=== PATIENT | male | born 1965 | race Hispanic/Latino ===

== ENCOUNTER 2018-09-03 13:31 | Emergency (ER) | payer BC, OTHER ==
[2018-09-03] MEDS ORDERED: IBUPROFEN 400 MG TAB ONE (14:18)
[2018-09-03] MEDS ORDERED: HYDROCODONE/APAP 5/325 MG TAB ONE (14:18)
--- NOTE | 2018-09-03 14:56 | ER ---
Nurse's Notes [facility] Name: Xu Bain Age: 53 yrs Sex: Male : 1965 Arrival Date: 09/03/2018 Time: 13:32 Bed 18 Private MD: Diagnosis: Sprain of other part of left wrist and hand Presentation: 09/03 13:55 Presenting complaint: Patient states: I was using an electric drill and it twisted my la1 left hand/wrist. Transition of care: patient was not received from another setting of care. Onset of symptoms was September 03, 2018. Risk Assessment: Do you want to hurt yourself or someone else? Patient reports no desire to harm self or others. Initial Sepsis Screen: Does the patient meet any 2 criteria? No. Patient's initial sepsis screen is negative. Does the patient have a suspected source of infection? No. Patient's initial sepsis screen is negative. Care prior to arrival: None. 13:55 Method Of Arrival: Ambulatory la1 13:55 Acuity: JUNIE 4 la1 Triage Assessment: 14:40 General: Appears in no apparent distress. General: Behavior is calm, cooperative. Pain: iw Complains of pain in lateral aspect of left hand and left hand. Musculoskeletal: Range of motion: limited in MCP of left thumb. Injury Description:. Historical: - Allergies: 13:56 No Known Allergies; la1 - PMHx: 14:16 Hypertension; High Cholesterol; la1 - Immunization history:: Adult Immunizations up to date. - Social history:: Smoking status: Patient/guardian denies using tobacco. - Ebola Screening: : No symptoms or risks identified at this time. Screenin:05 Abuse screen: Denies threats or abuse. Nutritional screening: No deficits noted. em Tuberculosis screening: No symptoms or risk factors identified. Fall Risk None identified. Assessment: 15:20 Reassessment: Patient is alert, oriented x 3, equal unlabored respirations, skin iw warm/dry/pink. Pre-formed thumb splint applied to left thumb. . Vital Signs: 13:56 BP 140 / 90; Pulse 98; Resp 18; Temp 97.5; Pulse Ox 98% on R/A; Weight 81.65 kg; Height la1 5 ft. 9 in. (175.26 cm); Pain 8/10; 15:19 BP 136 / 89; Pulse 76; Resp 16 S; Pulse Ox 98% on R/A; Pain 5/10; iw 13:56 Body Mass Index 26.58 (81.65 kg, 175.26 cm) la1 ED Course: 13:32 Patient arrived in ED. as 13:56 Triage completed. la1 13:57 [facility] snw 13:57 Dustin Mujica MD is Attending Physician. snw 13:57 Arm band placed on left wrist. la1 14:05 Patient has correct armband on for positive identification. Bed in low position. Call em light in reach. Adult w/ patient. 14:06 Kelton Villarreal LVN is Primary Nurse. em 14:38 X-ray completed. Portable x-ray completed in exam room. Patient tolerated procedure sg4 well. 14:39 Hand Left 3 View XRAY In Process Unspecified. EDMS 15:10 No provider procedures requiring assistance completed. Patient did not have IV access iw during this emergency room visit. Administered Medications: 14:08 Drug: [place] 5 mg-325 mg 1 tabs Route: PO; em 15:20 Follow up: Response: No adverse reaction; Pain is decreased iw 14:08 Drug: Motrin 400 mg Route: PO; em 15:20 Follow up: Response: No adverse reaction; Pain is decreased iw Outcome: 14:56 Discharge ordered by . snw 15:20 Discharged to home ambulatory, with significant other. iw 15:20 Condition: stable 15:20 Discharge instructions given to patient, significant other, Instructed on discharge instructions, follow up and referral plans. medication usage, Demonstrated understanding of instructions, follow-up care, medications, Prescriptions given X 2. 15:21 Patient left the ED. iw Signatures: Dispatcher [employer] EDMS Cindy Jones FNP-C WEIGHER BULKER-Csnw Kelton Villarreal LVN LVN em Angela Ball Irene, RN RN iw Lazaro Banks RN RN Oneyda Nj sg4 Corrections: (The following items were deleted from the chart) 14:16 13:56 PMHx: None; la1 la1
--- NOTE | 2018-09-03 14:56 | EDPHYS ---
Physician Documentation [facility] Name: Xu Bain Age: 53 yrs Sex: Male : 1965 Arrival Date: 09/03/2018 Time: 13:32 Bed 18 Private MD: ED Physician Dustin Mujica HPI: 09/03 14:05 This 53 yrs old Male presents to ER via Ambulatory with complaints of Hand snw Injury. 14:05 The patient or guardian reports a contusion, decreased range of motion, injury, pain. snw The complaints affect the MCP of left thumb. Context: The problem was sustained at home, resulted from using electric drill and it went sideways. Onset: The symptoms/episode began/occurred suddenly, today. Associated signs and symptoms: The patient has no apparent associated signs or symptoms. Severity of symptoms: At their worst the symptoms were moderate. The patient has not experienced similar symptoms in the past. It is unknown whether or not the patient has recently seen a physician. Historical: - Allergies: 13:56 No Known Allergies; la1 - PMHx: 14:16 Hypertension; High Cholesterol; la1 - Immunization history:: Adult Immunizations up to date. - Social history:: Smoking status: Patient/guardian denies using tobacco. - Ebola Screening: : No symptoms or risks identified at this time. ROS: 14:04 Constitutional: Negative for fever, chills, and weight loss, Eyes: Negative for injury, snw pain, redness, and discharge, ENT: Negative for injury, pain, and discharge, Neck: Negative for injury, pain, and swelling, Cardiovascular: Negative for chest pain, palpitations, and edema, Respiratory: Negative for shortness of breath, cough, wheezing, and pleuritic chest pain, Abdomen/GI: Negative for abdominal pain, nausea, vomiting, diarrhea, and constipation, Back: Negative for injury and pain, : Negative for injury, bleeding, discharge, and swelling, Skin: Negative for injury, rash, and discoloration, Neuro: Negative for headache, weakness, numbness, tingling, and seizure. 14:04 MS/extremity: Positive for injury or acute deformity, contusion, decreased range of motion, pain, of the lateral aspect of left hand. Exam: 14:04 Constitutional: This is a well developed, well nourished patient who is awake, alert, snw and in no acute distress. Head/Face: Normocephalic, atraumatic. Eyes: Pupils equal round and reactive to light, extra-ocular motions intact. Lids and lashes normal. Conjunctiva and sclera are non-icteric and not injected. Cornea within normal limits. Periorbital areas with no swelling, redness, or edema. ENT: Nares patent. No nasal discharge, no septal abnormalities noted. Tympanic membranes are normal and external auditory canals are clear. Oropharynx with no redness, swelling, or masses, exudates, or evidence of obstruction, uvula midline. Mucous membranes moist. Neck: Trachea midline, no thyromegaly or masses palpated, and no cervical lymphadenopathy. Supple, full range of motion without nuchal rigidity, or vertebral point tenderness. No Meningismus. Chest/axilla: Normal chest wall appearance and motion. Nontender with no deformity. No lesions are appreciated. Cardiovascular: Regular rate and rhythm with a normal S1 and S2. No gallops, murmurs, or rubs. Normal PMI, no JVD. No pulse deficits. Respiratory: Lungs have equal breath sounds bilaterally, clear to auscultation and percussion. No rales, rhonchi or wheezes noted. No increased work of breathing, no retractions or nasal flaring. Abdomen/GI: Soft, non-tender, with normal bowel sounds. No distension or tympany. No guarding or rebound. No evidence of tenderness throughout. Back: No spinal tenderness. No costovertebral tenderness. Full range of motion. Skin: Warm, dry with normal turgor. Normal color with no rashes, no lesions, and no evidence of cellulitis. Neuro: Awake and alert, GCS 15, oriented to person, place, time, and situation. Cranial nerves II-XII grossly intact. Motor strength 5/5 in all extremities. Sensory grossly intact. Cerebellar exam normal. Normal gait. Psych: Awake, alert, with orientation to person, place and time. Behavior, mood, and affect are within normal limits. 14:04 Musculoskeletal/extremity: Extremities: grossly normal except: noted in the left hand: contusion, decreased ROM, swelling, tenderness. Vital Signs: 13:56 BP 140 / 90; Pulse 98; Resp 18; Temp 97.5; Pulse Ox 98% on R/A; Weight 81.65 kg; Height la1 5 ft. 9 in. (175.26 cm); Pain 8/10; 15:19 BP 136 / 89; Pulse 76; Resp 16 S; Pulse Ox 98% on R/A; Pain 5/10; iw 13:56 Body Mass Index 26.58 (81.65 kg, 175.26 cm) la1 MDM: 13:58 Patient medically screened. snw 15:23 Data reviewed: vital signs, nurses notes. Data interpreted: Pulse oximetry: on room air snw is 98 %. Interpretation: normal. Counseling: I had a detailed discussion with the patient and/or guardian regarding: the historical points, exam findings, and any diagnostic results supporting the discharge/admit diagnosis, the presence of at least one elevated blood pressure reading (>120/80) during this emergency department visit. 09/03 14:04 Order name: Hand Left 3 View XRAY; Complete Time: 15:29 snw 09/03 14:55 Order name: Thumb Spica Splint: velcro; Complete Time: 15:19 snw Administered Medications: 14:08 Drug: [place] 5 mg-325 mg 1 tabs Route: PO; em 15:20 Follow up: Response: No adverse reaction; Pain is decreased iw 14:08 Drug: Motrin 400 mg Route: PO; em 15:20 Follow up: Response: No adverse reaction; Pain is decreased iw Disposition: 16:48 Co-signature as Attending Physician, Dustin Mujica MD. gs Disposition: 09/03/18 14:56 Discharged to Home. Impression: Sprain of other part of left wrist and hand. - Condition is Stable. - Discharge Instructions: Cast or Splint Care, Adult, Hypertension, RICE for Routine Care of Injuries, Thumb Sprain. - Prescriptions for Diclofenac Sodium 75 mg Oral Tablet Sustained Release - take 1 tablet by ORAL route 2 times per day; 30 tablet. orphenadrine citrate 100 mg Oral Tablet Sustained Release - take 1 tablet by ORAL route 2 times per day As needed; 20 tablet. - Medication Reconciliation Form, Thank You Letter, Antibiotic Education, Prescription Opioid Use form. - Follow up: Private Physician; When: 2 - 3 days; Reason: Recheck today's complaints, Continuance of care, Re-evaluation by your physician. Follow up: Emergency Department; When: As needed; Reason: Worsening of condition. Signatures: Dispatcher [employer] EDCindy Aguilar, FOREST FIRE PREVENTION MANAGER-C FOREST FIRE PREVENTION MANAGER-Csnw Kelton Villarreal, LYE BATH OPERATOR LYE BATH OPERATOR em Marina Ellis RN RN iw Lazaro Banks RN RN comfort1 Dustin Mujica MD MD gs Corrections: (The following items were deleted from the chart) 14:16 13:56 PMHx: None; la1 la1 15:20 14:55 Ice pack ordered. snw iw 15:21 14:56 09/03/2018 14:56 Discharged to Home. Impression: Sprain of other part of left iw wrist and hand. Condition is Stable. Forms are Medication Reconciliation Form, Thank You Letter, Antibiotic Education, Prescription Opioid Use. Follow up: Private Physician; When: 2 - 3 days; Reason: Recheck today's complaints, Continuance of care, Re-evaluation by your physician. Follow up: Emergency Department; When: As needed; Reason: Worsening of condition. snw
--- NOTE | 2018-09-03 15:17 | RAD REPORT ---
EXAM DESCRIPTION: RAD - Hand Left 3 View - 09/03/2018 2:39 pm CLINICAL HISTORY: Trauma, hand pain COMPARISON: None. FINDINGS: No fracture, dislocation or periosteal reaction noted. No foreign body or other soft tissu e abnormality. Old ulna styloid fracture is evident. IMPRESSION: Negative left hand examination.
== END 2018-09-03 15:21 | disposition home or self-care (01) ==
LOC: ER 13:31
DX: S63.8X2A Sprain of other part of left wrist and hand, initial encounter (principal); X58.XXXA Exposure to other specified factors, initial encounter; Y93.89 Activity, other specified; Y92.009 Unspecified place in unspecified non-institutional (private) residence as the place of occurrence of the external cause; I10 Essential (primary) hypertension
CPT/HCPCS: 99283

== ENCOUNTER 2020-07-13 12:00 | Emergency (ER) | payer BC, OTHER ==
[2020-07-13] MEDS ORDERED: ONDANSETRON 4 MG/2 ML VIAL ONE (12:38)
[2020-07-13] MEDS ORDERED: NA CHLORIDE 0.9% 500 ML ONE (12:38)
[2020-07-13] MEDS ORDERED: METHYLPREDNISOLONE 125 MG INJ ONE (12:38)
[2020-07-13 12:43] LABS: Absolute Lymphocytes (CBC) 0.9 K/uL (0.7-4.9); Basophils % 0.4 % (0-1.3); Hematocrit 41.8 % (39.6-49.0); Lymphocytes % 22.3 % (15.3-44.8); RBC Red Blood Cell Count 4.69 M/uL (4.33-5.43)
--- NOTE | 2020-07-13 12:55 | RAD REPORT ---
EXAM DESCRIPTION: RAD - Chest Single View - 07/13/2020 12:50 pm CLINICAL HISTORY: COUGH Chest pain. COMPARISON: No comparisons FINDINGS: Portable technique limits examination quality. The lungs are grossly clear. The heart is upper limit of normal in size. No displaced fractures. IMPRESSION: No acute intrathoracic process suspected.
[2020-07-13 13:04] LABS: BUN Blood Urea Nitrogen 12 mg/dL (7-18); Bicarbonate 27 mmol/L (21-32); Ferritin 246.4 ng/mL (26-388); Glucose Level 117 mg/dL (74-106); Potassium 4.6 mmol/L (3.5-5.1); Sodium Level 137 mmol/L (136-145); Troponin (Emerg Dept Use Only) < 0.02 ng/mL (0.0-0.045)
[2020-07-13 13:06] LABS: C-Reactive Protein < 2.90 mg/L (<3.00)
[2020-07-13 13:40] LABS: SARS-COV-2 RT PCR POSITIVE (NEGATIVE)
--- NOTE | 2020-07-13 14:04 | EDPHYS ---
Physician Documentation [facility] Name: Xu Bain Age: 54 yrs Sex: Male : 1965 Arrival Date: 07/13/2020 Time: 12:03 Bed 25 Private MD: ED Physician Chino Parikh HPI: 07/13 12:39 This 54 yrs old Male presents to ER via Ambulatory with complaints of Cough, rn Headache. 12:39 The patient or guardian reports cough, flu symptoms, low-grade fever, myalgias, no rn appetite. Onset: The symptoms/episode began/occurred 5 day(s) ago. Severity of symptoms: At their worst the symptoms were mild, in the emergency department the symptoms are unchanged. Modifying factors: The symptoms are alleviated by nothing, the symptoms are aggravated by nothing. Associated signs and symptoms: Pertinent positives: fever, nausea, Pertinent negatives: chest pain, diarrhea, vomiting. The patient has not experienced similar symptoms in the past. Reports 5 days of cough, malaise, fatigue, headache, nausea. Seen at pcp office, given zithromax, no tests. Denies sob. No hemoptysis. Reports left sided headache without neck pain or stiffness. Now since yesterday decreased appetite. No loss of taste or smell. . Historical: - Allergies: 12:19 No Known Allergies; aa5 - Home Meds: 12:19 pravastatin 20 mg oral tab 1 tab once daily [Active]; carvedilol 3.125 mg oral tab aa5 daily [Active]; lisinopril 20 mg Oral tab 1 tab once daily [Active]; amlodipine 5 mg tab 1 tab once daily [Active]; 12:19 aspirin 81 mg Oral chew 1 tab once daily [Active]; aa5 - PMHx: 12:19 High Cholesterol; Hypertension; aa5 - Immunization history:: Adult Immunizations unknown. - Social history:: Smoking status: Patient denies any tobacco usage or history of. - Family history:: not pertinent. - Hospitalizations: : No recent hospitalization is reported. ROS: 12:39 Constitutional: + low grade fever Eyes: Negative for injury, pain, redness, and reduction furnace operator, ENT: Negative for injury, pain, and discharge, Neck: Negative for injury, pain, and swelling, Cardiovascular: Negative for chest pain, palpitations, and edema, Respiratory: + cough, negative for sob Abdomen/GI: Negative for vomiting, diarrhea, and constipation, Back: Negative for injury and pain, MS/Extremity: Negative for injury and deformity, Skin: Negative for injury, rash, and discoloration, Neuro: Negative for numbness, tingling, and seizure. Exam: 12:39 ECG was reviewed by the Attending Physician. rn 12:39 Constitutional: This is a well developed, well nourished patient who is awake, alert, rn and in no acute distress. Ambulatory to room without difficulty or assistance. Head/Face: Normocephalic, atraumatic. ENT: dry MM, no stridor Neck: Trachea midline, no masses palpated, and no cervical lymphadenopathy. Supple, full range of motion without nuchal rigidity, or vertebral point tenderness. No Meningismus. Cardiovascular: Regular rate and rhythm. No pulse deficits. Respiratory: Speaking full sentences. No increased work of breathing, no retractions or nasal flaring. Abdomen/GI: soft, non-tender Skin: Warm, dry MS/ Extremity: Pulses equal, no cyanosis. Neurovascular intact. Full, normal range of motion. Equal circumference. Neuro: Awake and alert, GCS 15, oriented to person, place, time, and situation. Normal gait. Vital Signs: 12:05 BP 151 / 92; Pulse 72; Resp 16 S; Temp 99.0(O); Pulse Ox 100% on R/A; aa5 13:15 BP 106 / 75; Pulse 65; Resp 16; Pulse Ox 100% on R/A; zb MDM: 12:04 Patient medically screened. rn 13:52 Differential Diagnosis: Bronchitis Influenza Upper Respiratory Infection Viral Syndrome rn Pneumonia Other dehydration. Data reviewed: vital signs, nurses notes, lab test result(s), radiologic studies, plain films, and as a result, I will discharge patient. Counseling: I had a detailed discussion with the patient and/or guardian regarding: the historical points, exam findings, and any diagnostic results supporting the discharge/admit diagnosis, lab results, radiology results, the need for outpatient follow up, to return to the emergency department if symptoms worsen or persist or if there are any questions or concerns that arise at home. Response to treatment: the patient's symptoms have mildly improved after treatment, and as a result, I will discharge patient. Special discussion: I discussed with the patient/guardian in detail that at this point there is no indication for admission to the hospital. It is understood, however, that if the symptoms persist or worsen the patient needs to return immediately for re-evaluation. ED course: + COVID, neg cxr, no oxygen requirement, will dc home with steroids. . 07/13 12:16 Order name: Blood Culture Adult (2) rn 07/13 12:16 Order name: BMP; Complete Time: 13:17 rn 07/13 12:16 Order name: C-Reactive Protein; Complete Time: 13:17 rn 07/13 12:16 Order name: CBC with Diff; Complete Time: 13:00 rn 07/13 12:16 Order name: D-Dimer; Complete Time: 13:00 rn 07/13 12:16 Order name: Ferritin; Complete Time: 13: rn 07/13 12:16 Order name: Procalcitonin rn 07/13 12:16 Order name: Strep; Complete Time: 13:00 rn 07/13 12:16 Order name: Troponin (emerg Dept Use Only); Complete Time: 13: rn 07/13 12:16 Order name: CXR XRAY; Complete Time: 13:00 rn 07/13 12:57 Order name: Throat Culture EDWA 07/13 13:41 Order name: COVID-19/FLU A+B; Complete Time: 13:41 EDWA 07/13 12:16 Order name: EKG; Complete Time: 12:17 rn 07/13 12:16 Order name: Cardiac monitoring; Complete Time: 12:40 rn 07/13 12:16 Order name: Droplet/Contact Precautions; Complete Time: 12:20 rn 07/13 12:16 Order name: EKG - Nurse/Tech; Complete Time: 12:40 rn 07/13 12:16 Order name: IV Start; Complete Time: 12:40 rn 07/13 12:16 Order name: Labs collected and sent; Complete Time: 12:40 rn 07/13 12:16 Order name: O2 Per Protocol; Complete Time: 12:40 rn 07/13 12:16 Order name: O2 Sat Monitoring; Complete Time: 12:40 rn EC:39 Rate is 73 beats/min. Rhythm is regular. QRS [place] is Normal. [place] interval is normal. QRS rn interval is normal. QT interval is normal. No Q waves. T waves are Normal. No ST changes noted. Clinical impression: Normal ECG. Interpreted by me. Reviewed by me. Administered Medications: 12:39 Drug: Zofran (Ondansetron) 4 mg Route: IVP; Site: left antecubital; zb 13:44 Follow up: Response: No adverse reaction; Nausea unchanged zb 12:40 Drug: NS 0.9% 500 ml Route: IV; Rate: bolus; Site: left antecubital; zb 13:00 Follow up: Response: No adverse reaction; IV Status: Completed infusion; IV Intake: zb 500ml 12:40 Drug: SOLU-Medrol 125 mg Route: IVP; Site: left antecubital; zb 13:45 Follow up: Response: No adverse reaction zb Disposition: 07/13/20 14:03 Discharged to Home. Impression: Coronavirus infection, unspecified, Dehydration. - Condition is Stable. - Discharge Instructions: Dehydration, Adult, COVID-19. - Prescriptions for Prednisone 20 mg Oral Tablet - take 1 tablet by ORAL route as directed for 14 days Take 1 tablet by mouth twice daily for 7 days, followed by 1 tablet by mouth once daily for 7 days.; 21 tablet. - Medication Reconciliation Form, Thank You Letter, Antibiotic Education, Prescription Opioid Use form. - Follow up: Rafael Leal MD; When: As needed; Reason: Recheck today's complaints, Re-evaluation by your physician. - Problem is new. - Symptoms have improved. Signatures: Dispatcher [employer] EDMS Chino Parikh MD MD rn Calderon, Audri RN RN aa5 Mere Marlow RN RN zb Corrections: (The following items were deleted from the chart) 12:41 12:17 CORONAVIRUS+MR.LAB.BRZ ordered. EDWA EDMS 12:41 12:17 Influenza Screen (A \T\ B)+BA.LAB.BRZ ordered. EDWA EDMS 14:16 14:03 07/13/2020 14:03 Discharged to Home. Impression: Coronavirus infection, aa5 unspecified; Dehydration. Condition is Stable. Forms are Medication Reconciliation Form, Thank You Letter, Antibiotic Education, Prescription Opioid Use. Follow up: Rafael Leal; When: As needed; Reason: Recheck today's complaints, Re-evaluation by your physician. Problem is new. Symptoms have improved. rn
--- NOTE | 2020-07-13 14:04 | ER ---
Nurse's Notes [facility] Name: Xu Bain Age: 54 yrs Sex: Male : 1965 Arrival Date: 07/13/2020 Time: 12:03 Bed 25 Private MD: Diagnosis: Coronavirus infection, unspecified;Dehydration Presentation: 07/13 12:04 Chief complaint: Patient states: slight cough, headache to left side of head, aa5 generalized weakness that began approximately 4 days ago and has gotten worse. Pt reports nausea and abdominal discomfort since yesterday. Denies vomiting/diarrhea, denies SOB. Pt also reports last dose of Azithromycin is today and reports also taking Mucinex DM. 12:04 Coronavirus screen: fatigue, headache, nausea, Client presents with at least one sign aa5 or symptom that may indicate coronavirus-19. Standard/surgical mask placed on the client. Provider contacted for isolation considerations. Ebola Screen: Patient negative for fever greater than or equal to 101.5 degrees Fahrenheit, and additional compatible Ebola Virus Disease symptoms. Initial Sepsis Screen: Does the patient meet any 2 criteria? No. Patient's initial sepsis screen is negative. Does the patient have a suspected source of infection? No. Patient's initial sepsis screen is negative. Risk Assessment: Do you want to hurt yourself or someone else? Patient reports no desire to harm self or others. Onset of symptoms was July 13, 2020. 12:04 Acuity: JUNIE 3 aa5 12:04 Method Of Arrival: Ambulatory aa5 Historical: - Allergies: 12:19 No Known Allergies; aa5 - Home Meds: 12:19 pravastatin 20 mg oral tab 1 tab once daily [Active]; carvedilol 3.125 mg oral tab aa5 daily [Active]; lisinopril 20 mg Oral tab 1 tab once daily [Active]; amlodipine 5 mg tab 1 tab once daily [Active]; 12:19 aspirin 81 mg Oral chew 1 tab once daily [Active]; aa5 - PMHx: 12:19 High Cholesterol; Hypertension; aa5 - Immunization history:: Adult Immunizations unknown. - Social history:: Smoking status: Patient denies any tobacco usage or history of. - Family history:: not pertinent. - Hospitalizations: : No recent hospitalization is reported. Screenin:44 Abuse screen: Denies threats or abuse. Denies injuries from another. Nutritional zb screening: No deficits noted. Tuberculosis screening: No symptoms or risk factors identified. Fall Risk None identified. Assessment: 12:40 General: Appears in no apparent distress. comfortable, Behavior is calm, cooperative, zb appropriate for age, Reports fever for feeling ill for fatigue for reports weakness . Pain: Complains of pain in left anabaptism Pain does not radiate. Pain currently is 6 out of 10 on a pain scale. Quality of pain is described as aching. Neuro: Level of Consciousness is awake, alert, obeys commands, Oriented to person, place, time, situation. Cardiovascular: Capillary refill < 3 seconds in bilateral fingers Patient's skin is warm and dry. Cardiovascular: Heart tones S1 S2 present Rhythm is regular. Respiratory: Airway is patent Respiratory effort is even, unlabored, Respiratory pattern is regular, symmetrical, Breath sounds are clear bilaterally. Respiratory: Reports cough that is. GI: Abdomen is flat, non-distended. GI: Patient currently denies diarrhea. GI: Reports nausea. :. EENT: No signs and/or symptoms were reported regarding the EENT system. Derm: Skin is intact, is healthy with good turgor, Skin is dry, Skin is normal, Skin temperature is warm. Musculoskeletal: No signs and/or symptoms reported regarding the musculoskeletal system. 13:17 Reassessment: Patient appears in no apparent distress at this time. Patient and/or zb family updated on plan of care and expected duration. Pain level reassessed. Patient is alert, oriented x 3, equal unlabored respirations, skin warm/dry/pink. pt states his headache is about 5/10. still has some nausea. but patient is resting quietly. Vital Signs: 12:05 BP 151 / 92; Pulse 72; Resp 16 S; Temp 99.0(O); Pulse Ox 100% on R/A; aa5 13:15 BP 106 / 75; Pulse 65; Resp 16; Pulse Ox 100% on R/A; zb ED Course: 12:03 Patient arrived in ED. rn 12:03 Chino Parikh MD is Attending Physician. rn 12:04 Arm band placed on Patient placed in an exam room, on a stretcher. aa5 12:16 Mere Marlow RN is Primary Nurse. zb 12:17 Triage completed. aa5 12:30 Inserted saline lock: 20 gauge in left antecubital area, using aseptic technique. Blood aa5 collected. 12:30 Initial lab(s) drawn, by me, sent to lab. First set of blood cultures drawn by me. aa5 12:40 Second set of blood cultures drawn by me. aa5 12:50 CXR XRAY In Process Unspecified. EDMS 14:01 Rafael Leal MD is Referral Physician. rn 14:15 No provider procedures requiring assistance completed. IV discontinued, intact, aa5 bleeding controlled, No redness/swelling at site. Pressure dressing applied. Administered Medications: 12:39 Drug: Zofran (Ondansetron) 4 mg Route: IVP; Site: left antecubital; zb 13:44 Follow up: Response: No adverse reaction; Nausea unchanged zb 12:40 Drug: NS 0.9% 500 ml Route: IV; Rate: bolus; Site: left antecubital; zb 13:00 Follow up: Response: No adverse reaction; IV Status: Completed infusion; IV Intake: zb 500ml 12:40 Drug: SOLU-Medrol 125 mg Route: IVP; Site: left antecubital; zb 13:45 Follow up: Response: No adverse reaction zb Intake: 13:00 IV: 500ml; Total: 500ml. zb Outcome: 14:03 Discharge ordered by . rn 14:15 Discharged to home ambulatory. aa5 14:15 Condition: stable 14:15 Discharge instructions given to patient, Instructed on discharge instructions, follow up and referral plans. medication usage, Demonstrated understanding of instructions, follow-up care, medications, Prescriptions given X 1. 14:16 Patient left the ED. aa5 Signatures: Dispatcher [employer] EDAR Chino Parihk MD MD rn Calderon, Audri, RN RN aa5 Brown, Zipporah, RN RN zb Corrections: (The following items were deleted from the chart) 12:43 12:04 Chief complaint: Patient states: slight cough, headache to left side of head, aa5 generalized weakness that began approximately 4 days ago and has gotten worse. Pt reports nausea and abdominal discomfort since yesterday. Denies vomiting/diarrhea, denies SOB. aa5 12:43 12:04 Coronavirus screen: fatigue, headache, nausea, aa5 aa5
[2020-07-13 14:25] VITALS: BP 106/75; O2SAT 100
[2020-07-13 14:27] VITALS: TEMP 99
--- NOTE | 2020-07-14 07:22 | EKG ---
Test Date: 2020-07-13 Test Time: 12:27:30 Cloth Checker: MARY MEASUREMENT RESULTS: Intervals: Rate: 73 ID: [id number] QRSD: 102 QT: 390 QTc: 429 [place]: P: 57 ID: [id number] QRS: 60 T: 55 INTERPRETIVE STATEMENTS: Normal sinus rhythm Normal ECG No previous ECG available for comparison Electronically Signed On 07-14-20 07:20:29 TOPPER PACKER by Juan Lund
== END 2020-07-13 14:16 | disposition home or self-care (01) ==
LOC: ER 12:00
DX: U07.1 COVID-19 (principal); E86.0 Dehydration; E78.00 Pure hypercholesterolemia, unspecified; Z79.82 Long term (current) use of aspirin
CPT/HCPCS: 93005; 87040 ×2; 87070; 85025; 80048; 36415; 85379; 87081; 84484; 82728; 84145; 0240U; 86140; 71045; 96375; 96374; 99284; J7040; J2930; J2405

== ENCOUNTER 2020-10-05 09:07 | Emergency (ER) | payer OTHER ==
[2020-10-05] MEDS ORDERED: NA CHLORIDE 0.9% 500 ML ONE (09:49)
[2020-10-05] MEDS ORDERED: MECLIZINE HCL 12.5 MG TAB ONE (09:49)
--- NOTE | 2020-10-05 09:51 | RAD REPORT ---
EXAM DESCRIPTION: RAD - Chest Single View - 10/05/2020 9:45 am CLINICAL HISTORY: cough, dizziness Chest pain. COMPARISON: Chest Single View dated 07/13/2020 FINDINGS: Portable technique limits examination quality. The lungs are grossly clear. The heart is normal in size. No displaced fractures. IMPRESSION: No acute intrathoracic process suspected.
--- NOTE | 2020-10-05 09:54 | RAD REPORT ---
EXAM DESCRIPTION: CT - Head Brain Wo Cont - 10/05/2020 9:45 am CLINICAL HISTORY: headache, dizziness Headache, drowsiness COMPARISON: No comparisons TECHNIQUE: All CT scans are performed using dose optimization technique as appropriate and may inclu de automated exposure control or mA/KV adjustment according to patient size. FINDINGS: No intracranial hemorrhage, hydrocephalus or extra-axial fluid collection.No areas of brai n edema or evidence of midline shift. The paranasal sinuses and left mastoid are clear. Mild right mastoid effusion. The calvarium is intac t. IMPRESSION: No acute intracranial abnormality.
[2020-10-05 09:55] LABS: Absolute Lymphocytes (CBC) 1.2 K/uL (0.7-4.9); Basophils % 0.7 % (0-1.3); Hematocrit 40.7 % (39.6-49.0); MPV 9.2 fL (7.6-11.3); RBC Red Blood Cell Count 4.54 M/uL (4.33-5.43)
[2020-10-05 09:56] LABS: Protime INR 0.95
[2020-10-05 10:10] LABS: ALT/SGPT 43 U/L (12-78); AST/SGOT 20 U/L (15-37); Albumin 3.6 g/dL (3.4-5.0); Alkaline Phosphatase 46 U/L (45-117); BUN Blood Urea Nitrogen 16 mg/dL (7-18); Bicarbonate 28 mmol/L (21-32); Bilirubin Direct < 0.1 mg/dL (0-0.2); Bilirubin Total 0.3 mg/dL (0.2-1.0); Glucose Level 146 mg/dL (74-106); Magnesium 2.3 mg/dL (1.8-2.4); NT PRO-BNP 21 pg/mL (<125); Potassium 3.9 mmol/L (3.5-5.1); Sodium Level 140 mmol/L (136-145); Troponin (Emerg Dept Use Only) < 0.02 ng/mL (0.0-0.045)
--- NOTE | 2020-10-05 11:04 | RAD REPORT ---
EXAM DESCRIPTION: CT - Head angio - 10/05/2020 10:36 am CLINICAL HISTORY: DIZZINESS Headache, drowsiness COMPARISON: Head Brain Wo Cont dated 10/05/2020 TECHNIQUE: CT angiography of the head was performed with MIPs. All CT scans are performed using dose optimization technique as appropriate and may include automated exposure control or mA/KV adjustment according to patient size. FINDINGS: No evidence of aneurysm is detected. No flow-limiting stenosis or vascular malformation id entified. Antegrade flow is seen in the vertebral arteries. The vertebral arteries are codominant. The visualized dural venous sinuses are patent. Mild right mastoid effusion. IMPRESSION: No significant flow abnormality is detected.
--- NOTE | 2020-10-05 11:06 | RAD REPORT ---
EXAM DESCRIPTION: CT - Neck Angio - 10/05/2020 10:39 am CLINICAL HISTORY: dizziness Headache, drowsiness COMPARISON: No comparisons TECHNIQUE: CT angiography of the neck vessels was performed with MIPs. All CT scans are performed using dose optimization technique as appropriate and may include automated exposure control or mA/KV adjustment according to patient size. FINDINGS: A left aortic arch is identified with normal three vessel configuration of the great vesse ls. No significant flow abnormality is seen of the common carotid bilaterally. No significant stenosis is identified involving the cervical segments of both internal carotid arteri es. Normal flow is seen within both vertebral arteries. IMPRESSION: No significant flow abnormality of the neck vessels is identified.
--- NOTE | 2020-10-05 12:41 | EDPHYS ---
Physician Documentation [facility] Name: Xu Bain Age: 55 yrs Sex: Male : 1965 Arrival Date: 10/05/2020 Time: 09: Bed 16 Private MD: Elisha Alvarado ED Physician Fabiano France HPI: 10/05 09:26 This 55 yrs old Male presents to ER via Unassigned with complaints of [facility] Headache, Dizziness. 09:26 The patient complains of pain to the left frontal area and left side of the back of m head. Onset: The symptoms/episode began/occurred gradually, 3 day(s) ago. Associated signs and symptoms: Pertinent positives: altered mental status, dizziness, cough. Headache History: The patient has had previous headaches and this one is similar to previous episodes. The patient has experienced a previous episode, when diagnosed with covid previously. This is a 55 year old male with a history of htn, that presents to the ED with complaints of left sided headache beginning approx 3 days ago. Patient states having a similar headache when diagnosed with covid previously. Patient states he becomes lightheaded and dizzy when he cough. Patient became concerned when he had 2 episodes of confusion where he didn't know where he was. Patient states this lasted for approx 5 seconds at a time. . Historical: - Allergies: : No Known Allergies; aa5 - Home Meds: : amlodipine 5 mg tab 1 tab once daily [Active]; aspirin 81 mg Oral chew 1 tab once daily aa5 [Active]; carvedilol 3.125 mg Oral tab daily [Active]; lisinopril 20 mg Oral tab 1 tab once daily [Active]; pravastatin 20 mg Oral tab 1 tab once daily [Active]; - PMHx: : High Cholesterol; Hypertension; aa5 - Immunization history:: Client reports receiving the 1st dose of the Covid vaccine, September 28, 2020. - Social history:: Smoking status: Patient/guardian denies using tobacco. ROS: : Constitutional: Negative for fever, chills, and weight loss, Cardiovascular: Negative [facility] for chest pain, palpitations, and edema. : Respiratory: Positive for cough. : Neuro: Positive for altered mental status, dizziness, headache. 09:26 All other systems are negative. Exam: 09:26 Constitutional: This is a well developed, well nourished patient who is awake, alert, jmm and in no acute distress. Head/Face: atraumatic. Eyes: EOMI, no conjunctival erythema appreciated ENT: Moist Mucus Membranes Neck: Trachea midline, Supple Chest/axilla: Normal chest wall appearance and motion. Cardiovascular: Regular rate and rhythm. No edema appreciated Respiratory: Normal respirations, no respiratory distress appreciated Abdomen/GI: Non distended, soft Back: Normal ROM Skin: General appearance color normal MS/ Extremity: Moves all extremities, no obvious deformities appreciated, no edema noted to the lower extremities Neuro: Awake and alert, normal gait Psych: Behavior is normal, Mood is normal, Patient is cooperative and pleasant 11:23 ECG was reviewed by the Attending Physician. [facility] Vital Signs: 09:13 BP 131 / 71; Pulse 83; Resp 16 S; Temp 98.0(O); Pulse Ox 97% on R/A; Weight 83.91 kg aa5 (R); Height 5 ft. 5 in. (165.10 cm) (R); Pain 6/10; 10:47 BP 117 / 71; Pulse 65; Resp 16 S; Pulse Ox 100% on R/A; ca1 09:13 Body Mass Index 30.79 (83.91 kg, 165.10 cm) aa5 MDM: 09:40 Patient medically screened. [facility] 12:37 Data reviewed: vital signs, nurses notes. Counseling: I had a detailed discussion with [facility] the patient and/or guardian regarding: the historical points, exam findings, and any diagnostic results supporting the discharge/admit diagnosis, lab results, radiology results, the need for outpatient follow up, to return to the emergency department if symptoms worsen or persist or if there are any questions or concerns that arise at home. ED course: IRIZARRY relieved in the ED. Imaging studies negative. Patient is afebrile, neck is supple, I do not suspect meningitis. I do not suspect SAH. Patient is advised to follow up with pcp or neuro for further evaluation. Patient understood and agrees with the plan of care. . 10/05 09:24 Order name: Basic Metabolic Panel [facility] 10/05 09:24 Order name: CBC with Diff [facility] 10/05 09:24 Order name: LFT's [facility] 10/05 09:24 Order name: Magnesium; Complete Time: 10:11 [facility] 10/05 09:24 Order name: NT PRO-BNP; Complete Time: 10:11 [facility] 10/05 09:24 Order name: PT-INR; Complete Time: 10:03 [facility] 10/05 09:24 Order name: Troponin (emerg Dept Use Only); Complete Time: 10:11 [facility] 10/05 09:24 Order name: XRAY Chest (1 view); Complete Time: 09:57 [facility] 10/05 09:24 Order name: CT Head Brain wo Cont; Complete Time: 09:57 [facility] 10/05 09:25 Order name: Basic Metabolic Panel; Complete Time: 10:11 EDMT 10/05 09:25 Order name: CBC with Automated Diff; Complete Time: 10:03 [facility] 10/05 09:25 Order name: Liver (Hepatic) Function; Complete Time: 10:11 [facility] 10/05 11:36 Order name: SARS-COV-2 RT PCR; Complete Time: 11:39 [facility] 10/05 09:24 Order name: EKG; Complete Time: 09:25 [facility] 10/05 09:24 Order name: Cardiac monitoring; Complete Time: 09:43 [facility] 10/05 09:24 Order name: EKG - Nurse/Tech; Complete Time: 10:09 [facility] 10/05 09:24 Order name: IV Saline Lock; Complete Time: 09:43 [facility] 10/05 09:24 Order name: Labs collected and sent; Complete Time: 09:43 [facility] 10/05 09:24 Order name: O2 Per Protocol; Complete Time: 09:43 [facility] 10/05 09:24 Order name: O2 Sat Monitoring; Complete Time: :43 [facility] 10/05 10:12 Order name: CT Head Angio; Complete Time: 11:09 [facility] 10/05 10:12 Order name: CT Neck Angio; Complete Time: 11:09 [facility] EC:23 Rate is 63 beats/min. Rhythm is regular. QRS Dennis is Normal. CO interval is normal. QRS jmm interval is normal. QT interval is normal. No Q waves. T waves are Normal. No ST changes noted. Reviewed by me. Administered Medications: 09:37 Drug: NS 0.9% 500 ml Route: IV; Rate: bolus; Site: left antecubital; aa5 10:10 Follow up: IV Status: Completed infusion; IV Intake: 500ml aa5 09:39 Drug: Meclizine 25 mg Route: PO; 5 10:10 Follow up: Response: No adverse reaction aa5 Disposition: 18:48 Co-signature as Attending Physician, Fabiano France MD. ma2 Disposition: 10/05/20 12:39 Discharged to Home. Impression: Headache. - Condition is Stable. - Discharge Instructions: General Headache Without Cause. - Medication Reconciliation Form, Thank You Letter, Antibiotic Education, Prescription Opioid Use form. - Follow up: Private Physician; When: 2 - 3 days; Reason: Recheck today's complaints, Continuance of care, Re-evaluation by your physician. Follow up: Merlin Chen MD; When: 2 - 3 days; Reason: Recheck today's complaints, Continuance of care, Re-evaluation by your physician. Signatures: Dispatcher [employer] [facility] Brayan Rizzo PA PA Dhara Delong RN RN aa Fabiano France MD MD wi2 Corrections: (The following items were deleted from the chart) 10:47 10:11 CORONAVIRUS+MR.LAB.BRZ ordered. [facility] EDMT 12:40 12:39 10/05/2020 12:39 Discharged to Home. Impression: Headache. Condition is Stable. [facility] Forms are Medication Reconciliation Form, Thank You Letter, Antibiotic Education, Prescription Opioid Use. Follow up: Private Physician; When: 2 - 3 days; Reason: Recheck today's complaints, Continuance of care, Re-evaluation by your physician. [facility] 12:56 12:40 10/05/2020 12:39 Discharged to Home. Impression: Headache. Condition is Stable. aa5 Discharge Instructions: General Headache Without Cause. Forms are Medication Reconciliation Form, Thank You Letter, Antibiotic Education, Prescription Opioid Use. Follow up: Private Physician; When: 2 - 3 days; Reason: Recheck today's complaints, Continuance of care, Re-evaluation by your physician. Follow up: Merlin Chen; When: 2 - 3 days; Reason: Recheck today's complaints, Continuance of care, Re-evaluation by your physician. [facility]
--- NOTE | 2020-10-05 12:41 | ER ---
Nurse's Notes [facility] Name: Xu Bain Age: 55 yrs Sex: Male : 1965 Arrival Date: 10/05/2020 Time: 09:09 Bed 16 Private MD: Elisha Alvarado Diagnosis: Headache Presentation: 10/05 09:13 Chief complaint: Patient states: "I've been feeling dizzy and with a headache to the aa5 left side of my head for about 10 days now". Pt states a few days at work he had episode of confusion "it just happened for like 5 seconds but I didn't know where I was at", pt reports another episode of confusion today. Denies nausea/vomiting, denies cough/congestion. 09:13 Coronavirus screen: headache. Ebola Screen: Patient negative for fever greater than or aa5 equal to 101.5 degrees Fahrenheit, and additional compatible Ebola Virus Disease symptoms. Initial Sepsis Screen: Does the patient meet any 2 criteria? No. Patient's initial sepsis screen is negative. Does the patient have a suspected source of infection? No. Patient's initial sepsis screen is negative. Risk Assessment: Do you want to hurt yourself or someone else? Patient reports no desire to harm self or others. Onset of symptoms was September 2020. 09:13 Acuity: JUNIE 3 aa5 09:13 Method Of Arrival: Ambulatory aa5 Historical: - Allergies: 09: No Known Allergies; aa5 - Home Meds: : amlodipine 5 mg tab 1 tab once daily [Active]; aspirin 81 mg Oral chew 1 tab once daily aa5 [Active]; carvedilol 3.125 mg Oral tab daily [Active]; lisinopril 20 mg Oral tab 1 tab once daily [Active]; pravastatin 20 mg Oral tab 1 tab once daily [Active]; - PMHx: :28 High Cholesterol; Hypertension; aa5 - Immunization history:: Client reports receiving the 1st dose of the Covid vaccine, September 28, 2020. - Social history:: Smoking status: Patient/guardian denies using tobacco. Screenin:47 Abuse screen: Denies threats or abuse. Denies injuries from another. Nutritional ca1 screening: No deficits noted. Tuberculosis screening: No symptoms or risk factors identified. Fall Risk None identified. Assessment: 09:40 Reassessment: Pt taken to CT . aa5 10:47 Reassessment: Patient appears in no apparent distress at this time. Patient and/or ca1 family updated on plan of care and expected duration. Pain level reassessed. Patient is alert, oriented x 3, equal unlabored respirations, skin warm/dry/pink. Neuro: No deficits noted. 10:47 General: Appears in no apparent distress. comfortable, Behavior is calm, cooperative, ca1 appropriate for age. Pain: Complains of pain in left side of the back of head and left frontal area Pain currently is 6 out of 10 on a pain scale. Neuro: Level of Consciousness is awake, alert, obeys commands, Oriented to person, place, time, situation. Cardiovascular: Heart tones S1 S2 present Capillary refill < 3 seconds Patient's skin is warm and dry. Respiratory: Airway is patent Respiratory effort is even, labored, Respiratory pattern is regular, symmetrical, Breath sounds are clear bilaterally. GI: Abdomen is flat, non-distended, Bowel sounds present X 4 quads. Abd is soft and non tender X 4 quads. : No signs and/or symptoms were reported regarding the genitourinary system. EENT: No signs and/or symptoms were reported regarding the EENT system. Derm: Skin is intact, is healthy with good turgor, Skin is pink, warm \\T\\ dry. Musculoskeletal: Circulation, motion, and sensation intact. Capillary refill < 3 seconds. 12:55 Reassessment: Patient is alert, oriented x 3, equal unlabored respirations, skin aa5 warm/dry/pink. Vital Signs: 09:13 BP 131 / 71; Pulse 83; Resp 16 S; Temp 98.0(O); Pulse Ox 97% on R/A; Weight 83.91 kg aa5 (R); Height 5 ft. 5 in. (165.10 cm) (R); Pain 6/10; 10:47 BP 117 / 71; Pulse 65; Resp 16 S; Pulse Ox 100% on R/A; ca1 09:13 Body Mass Index 30.79 (83.91 kg, 165.10 cm) aa5 ED Course: 09:09 Patient arrived in ED. as 09:10 Elisha Alvarado is Private Physician. as 09:13 Arm band placed on Patient placed in an exam room, on a stretcher. aa5 09:16 Brayan Rizzo PA is PHCP. [place] 09:16 Fabiano France MD is Attending Physician. [place] 09:27 Triage completed. aa5 09:35 Initial lab(s) drawn, by me, sent to lab. Inserted saline lock: 20 gauge in left aa5 antecubital area, using aseptic technique. Blood collected. 09:45 CT Head Brain wo Cont In Process Unspecified. EDMS 09:45 XRAY Chest (1 view) In Process Unspecified. EDMS 10:00 Indira Qiu, RN is Primary Nurse. ca1 10:36 CT Head Angio In Process Unspecified. EDMS 10:39 CT Neck Angio In Process Unspecified. EDMS 10:47 Patient has correct armband on for positive identification. Bed in low position. Call ca1 light in reach. Side rails up X2. surveillance monitor on. Pulse ox on. NIBP on. Warm blanket given. 12:40 Merlin Chen MD is Referral Physician. [place] 12:45 No provider procedures requiring assistance completed. IV discontinued, intact, aa5 bleeding controlled, No redness/swelling at site. Pressure dressing applied. Administered Medications: 09:37 Drug: NS 0.9% 500 ml Route: IV; Rate: bolus; Site: left antecubital; aa5 10:10 Follow up: IV Status: Completed infusion; IV Intake: 500ml aa5 09:39 Drug: Meclizine 25 mg Route: PO; aa5 10:10 Follow up: Response: No adverse reaction aa5 Intake: 10:10 IV: 500ml; Total: 500ml. aa5 Outcome: 12:39 Discharge ordered by . [place] 12:55 Discharged to home ambulatory. aa5 12:55 Condition: good 12:55 Discharge instructions given to patient, Instructed on discharge instructions, follow up and referral plans. Demonstrated understanding of instructions, follow-up care. 12:56 Patient left the ED. aa5 Signatures: Dispatcher [employer] EDSD Brayan Rizzo PA PA jmm Martinez, Amelia as Calderon, Audri, RN RN aa5 Indira Qiu RN RN ca1
[2020-10-05 13:02] VITALS: TEMP 98
[2020-10-05 13:03] VITALS: BP 117/71; O2SAT 100
--- NOTE | 2020-10-06 08:57 | EKG ---
Test Date: 2020-10-05 Test Time: 10:04:18 Fur Drummer: JUAN MEASUREMENT RESULTS: Intervals: Rate: 63 DE: 166 QRSD: 104 QT: 424 QTc: 433 [place]: P: 62 DE: 166 QRS: 57 T: 70 INTERPRETIVE STATEMENTS: Normal sinus rhythm Normal ECG Compared to ECG 07/13/2020 12:27:30 No significant changes Electronically Signed On 10-06-20 08:55:23 CDT by Juan Lund
== END 2020-10-05 12:56 | disposition home or self-care (01) ==
LOC: ER 09:07
DX: R51.9 Headache, unspecified (principal); Z20.822 Contact with and (suspected) exposure to COVID-19; Z86.16 Personal history of COVID-19; I10 Essential (primary) hypertension; E78.00 Pure hypercholesterolemia, unspecified; Z79.82 Long term (current) use of aspirin
CPT/HCPCS: 93005; 85025; 80048; 36415; 83735; 85610; 80076; 84484; 83880; 70450; 70496; 70498; 71045; 96360; 99284; U0003; J7040